=== PATIENT | female | born 1985 | race Caucasian/White ===

== ENCOUNTER 2022-02-27 19:10 | Observation (INO) | payer BC ==
[2022-02-27] MEDS: Lactated Ringers 1,000 ML IV SCH (19:45)
[2022-02-27] MEDS: Promethazine 25 MG in Sodium Chloride 0.9% 50 ML IV PRN (20:14)
[2022-02-27] MEDS: Sodium Chloride 0.9% 10 ML Syringe FLUSH SCH (20:15)
[2022-02-27] MEDS ORDERED: Metoclopramide 10 MG/2 ML SDV IVPUSH ONE (21:00)
[2022-02-27] MEDS ORDERED: diphenhydrAMINE 50 MG/ML SDV IVPUSH ONE (21:00)
[2022-02-27] MEDS: HYDROmorphone 1 MG/ML Syringe IVPUSH PRN ×2 (21:04→23:57)
[2022-02-27] MEDS: Ondansetron 4 MG/2 ML SDV IVPUSH PRN (23:52)
[2022-02-28] MEDS: Lactated Ringers 1,000 ML IV SCH ×2 (01:30→08:14)
[2022-02-28] MEDS: Promethazine 25 MG in Sodium Chloride 0.9% 50 ML IV PRN ×2 (04:41→10:45)
[2022-02-28] MEDS: HYDROmorphone 1 MG/ML Syringe IVPUSH PRN (05:31)
[2022-02-28] MEDS: Ondansetron 4 MG/2 ML SDV IVPUSH PRN (08:26)
[2022-02-28] MEDS: Sodium Chloride 0.9% 10 ML Syringe FLUSH SCH (08:39)
== END 2022-02-28 13:10 | disposition critical access hospital (66) ==
LOC: JD.OB 19:10 → MERGE 19:10
PROVIDERS: ADMIT Obstetrics & Gynecology; ATTEND Obstetrics & Gynecology
DX: O21.0 Mild hyperemesis gravidarum (principal); Z3A.08 8 weeks gestation of pregnancy; Z87.891 Personal history of nicotine dependence
CPT/HCPCS: 36415; 85025; 96361; 96365; 96375; 96376; G0378; J1170; J1200; J2405; J2550; J2765; J3490; J7120

== ENCOUNTER 2022-05-22 23:16 | Emergency (ER) | payer BC ==
[2022-05-22] MEDS ORDERED: Sodium Chloride 0.9% 1,000 ML IV ONE (23:41)
[2022-05-22] MEDS ORDERED: Promethazine 25 MG in Sodium Chloride 0.9% 50 ML IV ONE (23:41)
[2022-05-22] MEDS ORDERED: hydrOXYzine HCl 25 MG/ML SDV IM ONE (23:42)
[2022-05-23] MEDS ORDERED: Magnesium Sulfate/Water 4 GM in Premix Bag 1 BAG IV ONE (01:27)
[2022-05-23] MEDS ORDERED: Potassium Chloride 20 MEQ Tab.ER PO ONE ×3 (01:27→07:52)
[2022-05-23] MEDS ORDERED: Promethazine 25 MG in Sodium Chloride 0.9% 50 ML IV ONE (04:17)
[2022-05-23] MEDS ORDERED: Alum Hydrox/Mag Hydrox/Simeth 30 ML, Lidocaine 2% 15 ML PO ONE ×2 (07:15)
== END 2022-05-23 08:05 | disposition home or self-care (01) ==
LOC: JD.ED 23:16
DX: O21.0 Mild hyperemesis gravidarum (principal); E83.42 Hypomagnesemia; E87.6 Hypokalemia; Z79.899 Other long term (current) drug therapy; Z3A.19 19 weeks gestation of pregnancy
CPT/HCPCS: 36415; 80048; 80053; 81001; 83735; 85025; 96365; 96366; 96367; 96372; 99284; A9270; J2550; J3410; J3475; J7030; 99283

== ENCOUNTER 2022-10-14 21:38 | Inpatient (IN) | payer BC ==
[2022-10-14] MEDS ORDERED: Ondansetron 4 MG/2 ML SDV IVPUSH PRN (22:10)
[2022-10-14] MEDS ORDERED: Nalbuphine 10 MG/0.5 ML Syringe IVPUSH PRN (22:10)
[2022-10-14] MEDS ORDERED: Sodium Chloride 0.9% 10 ML Syringe FLUSH PRN (22:10)
[2022-10-14] MEDS ORDERED: Lidocaine 1% 50 ML MDV INJECT ONE (22:10)
[2022-10-14] MEDS ORDERED: Lactated Ringers 1,000 ML IV SCH (22:15)
[2022-10-14] MEDS ORDERED: Oxytocin/Lactated Ringers 10 UNIT/1,000 ML BAG IV SCH (22:15)
[2022-10-15] MEDS ORDERED: Witch Hazel Medicated Pads 40/Jar TOP PRN (00:43)
[2022-10-15] MEDS ORDERED: Benzocaine/Menthol 20%-0.5% Spray 78 GM Cannister TOP PRN (00:43)
[2022-10-15] MEDS: Ibuprofen 600 MG Tab PO PRN ×3 (01:00→16:13)
[2022-10-15] MEDS: Acetaminophen 325 MG Tab PO PRN ×3 (05:51→20:18)
[2022-10-15] MEDS: Docusate Sodium 100 MG Cap PO PRN ×2 (08:06→22:15)
[2022-10-15] MEDS: Ondansetron 4 MG Tab.DIS PO PRN ×4 (08:07→20:19)
[2022-10-15] MEDS ORDERED: Sodium Chloride 0.9% 10 ML Syringe FLUSH SCH (09:00)
[2022-10-15] MEDS: Promethazine 25 MG Tab PO PRN (18:50)
[2022-10-15] MEDS ORDERED: Lactated Ringers 1,000 ML IV ONE (22:00)
[2022-10-15] MEDS ORDERED: Sodium Chloride 0.9% 10 ML Syringe FLUSH PRN (22:01)
[2022-10-15] MEDS: Ondansetron 4 MG/2 ML SDV IVPUSH PRN (22:18)
[2022-10-16] MEDS: Ibuprofen 600 MG Tab PO PRN (00:23)
[2022-10-16] MEDS: Promethazine 25 MG Tab PO PRN (00:23)
[2022-10-16] MEDS: Ondansetron 4 MG/2 ML SDV IVPUSH PRN ×4 (02:20→16:41)
[2022-10-16] MEDS ORDERED: Lactated Ringers 1,000 ML IV ONE (08:24)
[2022-10-16] MEDS ORDERED: Famotidine 20 MG Tab PO SCH (09:00)
[2022-10-16] MEDS ORDERED: Famotidine 40 MG/5 ML Bottle PO SCH (09:00)
[2022-10-16] MEDS ORDERED: Lactated Ringers 1,000 ML IV SCH (09:00)
[2022-10-16] MEDS ORDERED: Famotidine 20 MG/2 ML SDV IVPUSH SCH (10:00)
[2022-10-16] MEDS: Promethazine 12.5 MG in Sodium Chloride 0.9% 50 ML IV PRN ×2 (10:14→16:49)
== END 2022-10-16 17:50 | disposition home or self-care (01) | DRG 560 ==
LOC: JD.OBCHECK 21:38 → JD.OB 22:10 → OBSVTOIN 23:42 → JD.OB 23:42
PROVIDERS: ADMIT Obstetrics & Gynecology; ATTEND Obstetrics & Gynecology
PROC: 10E0XZZ Delivery of Products of Conception, External Approach (ICD-10-PCS; principal; 2022-10-14)
PROC: 0HQ9XZZ Repair Perineum Skin, External Approach (ICD-10-PCS; 2022-10-14)
DX: O99.62 Diseases of the digestive system complicating childbirth (principal); O70.1 Second degree perineal laceration during delivery; Z37.0 Single live birth; K21.9 Gastro-esophageal reflux disease without esophagitis; O99.344 Other mental disorders complicating childbirth; F41.9 Anxiety disorder, unspecified; F32.A Depression, unspecified; R10.13 Epigastric pain; Z3A.40 40 weeks gestation of pregnancy
CPT/HCPCS: 36415; 59020; 59409; 80053; 85025; 86592; 86850; 86900; 86901; A9270-GY; J2001; J2405; J2550; J2590; J3490; J7120; J8597

== ENCOUNTER 2023-02-24 05:43 | Emergency (ER) | payer BC ==
[2023-02-24] MEDS ORDERED: HYDROmorphone 1 MG/ML Syringe IVPUSH STA (06:24)
[2023-02-24] MEDS ORDERED: Metoclopramide 10 MG/2 ML SDV IVPUSH STA (06:25)
[2023-02-24] MEDS ORDERED: Sodium Chloride 0.9% 1,000 ML IV ONE (06:25)
[2023-02-24 06:42] LABS: HEMATOCRIT 47.2 % (34.1-44.9); HEMOGLOBIN 16.6 gm/dl (11.2-15.7); MEAN CORPUSCULAR HEMOGLOBIN 31.8 pg (25.6-32.2); MEAN CORPUSCULAR HGB CONC 35.2 g/dl (32.2-35.5); MEAN CORPUSCULAR VOLUME 90.4 fl (79.4-94.8); MEAN PLATELET VOLUME 10.8 fl (9.4-12.3); PLATELET COUNT,PLT 280 K/mm3 (182-369); RED BLOOD CELL COUNT 5.22 M/mm3 (3.98-5.22); WHITE BLOOD CELL COUNT,WBC 15.55 K/mm3 (3.98-10.04)
[2023-02-24] MEDS ORDERED: Iopamidol 612 MG/ML 100 ML Bottle IVPUSH ONE (06:43)
[2023-02-24] MEDS ORDERED: Sodium Chloride 0.9% 10 ML Syringe FLUSH ONE (06:43)
[2023-02-24 06:49] LABS: A/G RATIO 1.3 (1-2); ALBUMIN 5.1 g/dl (3.4-5.0); ANION GAP 22.5 (5-15); BILIRUBIN TOTAL 0.9 mg/dL (0.2-1.0); BUN/CREATININE RATIO 19.1 (14-18); CALCIUM 10.4 mg/dL (8.5-10.1); CREATININE 1.1 mg/dL (0.55-1.02); EST CRCL DRUG DOSING (CG) 64.23 mL/min; POTASSIUM,K 3.5 mEq/L (3.5-5.1)
[2023-02-24 07:08] LABS: BAND PERCENT MAN 1 % (0-10); BASOPHILS PERCENT MAN 1 (0.1-1.2); EOSINOPHILS PERCENT MAN 0 % (0.7-5.8); LYMPHOCYTES % ATYPICAL MANUAL 0 %; LYMPHOCYTES PERCENT MAN 10 % (20-40); MONOCYTES PERCENT MAN 9 % (2-10)
[2023-02-24 07:09] LABS: PLATELET COUNT ESTIMATE ADEQUATE
[2023-02-24 09:07] LABS: APPEARANCE,URINE CLEAR (Clear); BILIRUBIN,URINE 1+ (Negative); COLOR,URINE YELLOW (Yellow); GLUCOSE,URINE NEGATIVE (Negative); KETONES,URINE 2+ (Negative); LEUKOCYTE ESTERASE,URINE NEGATIVE (Negative); NITRITE,URINE NEGATIVE (Negative); OCCULT BLOOD,URINE NEGATIVE (Negative); PROTEIN,URINE 2+ (Negative); UROBILINOGEN,URINE 0.2 (0.2-1.0)
[2023-02-24 09:15] LABS: BACTERIA,URINE FEW /hpf (FEW); EPITHELIAL CELLS,URINE 0-5 /hpf (0-5); MUCUS,URINE MANY /hpf (FEW); RBC,URINE 0-5 /hpf (0-5); WBC,URINE 0-5 /hpf (0-5)
== END 2023-02-24 09:35 | disposition home or self-care (01) ==
LOC: JD.ED 05:43
DX: R11.2 Nausea with vomiting, unspecified (principal); R10.9 Unspecified abdominal pain; F17.210 Nicotine dependence, cigarettes, uncomplicated; Z86.16 Personal history of COVID-19; Z79.899 Other long term (current) drug therapy
CPT/HCPCS: 36415; 74177; 80053; 81001; 83690; 84703; 85007; 85027; 96361; 96374; 96375; 99284; J1170; J2765; J3490; J7030; Q9967

== ENCOUNTER 2023-02-25 07:42 | Emergency (ER) | payer BC ==
[2023-02-25] MEDS ORDERED: Metoclopramide 10 MG/2 ML SDV IVPUSH ONE (08:06)
[2023-02-25] MEDS ORDERED: Sodium Chloride 0.9% 10 ML Syringe FLUSH PRN (08:06)
[2023-02-25] MEDS ORDERED: Sodium Chloride 0.9% 1,000 ML IV STA (08:06)
[2023-02-25] MEDS ORDERED: HYDROmorphone 1 MG/ML Syringe IVPUSH ONE (08:08)
[2023-02-25 08:22] LABS: BASOPHILS ABSOLUTE AUTO 0.02 K/mm3 (0.01-0.08); BASOPHILS PERCENT AUTO 0.2 % (0.1-1.2); EOSINOPHILS PERCENT AUTO 0 (0.7-5.8); HEMATOCRIT 43.2 % (34.1-44.9); HEMOGLOBIN 15.2 gm/dl (11.2-15.7); IMMATURE GRAN ABSOLUTE AUTO 0.02 K/mm3 (0.00-0.10); IMMATURE GRAN PERCENT AUTO 0.2 % (<=1.0); LYMPHOCYTES ABSOLUTE AUTO 1.43 K/mm3 (1.18-3.74); LYMPHOCYTES PERCENT AUTO 13.9 % (19.3-51.7); MEAN CORPUSCULAR HGB CONC 35.2 g/dl (32.2-35.5); MEAN CORPUSCULAR VOLUME 90.9 fl (79.4-94.8); MEAN PLATELET VOLUME 10.5 fl (9.4-12.3); MONOCYTES ABSOLUTE AUTO 0.57 K/mm3 (0.24-0.36); MONOCYTES PERCENT AUTO 5.5 % (4.7-12.5); NEUTROPHILS ABSOLUTE AUTO 8.27 K/mm3 (1.56-6.13); NEUTROPHILS PERCENT AUTO 80.2 % (34.0-71.1); PLATELET COUNT,PLT 262 K/mm3 (182-369); RED BLOOD CELL COUNT 4.75 M/mm3 (3.98-5.22); WHITE BLOOD CELL COUNT,WBC 10.31 K/mm3 (3.98-10.04)
[2023-02-25 08:43] LABS: A/G RATIO 1.3 (1-2); ALBUMIN 4.4 g/dl (3.4-5.0); ANION GAP 19.3 (5-15); BILIRUBIN TOTAL 0.9 mg/dL (0.2-1.0); CALCIUM 9.4 mg/dL (8.5-10.1); EST CRCL DRUG DOSING (CG) 70.66 mL/min; POTASSIUM,K 3.3 mEq/L (3.5-5.1); PROTEIN TOTAL,TP 7.8 g/dl (6.4-8.2)
[2023-02-25] MEDS ORDERED: Sodium Chloride 0.9% 1,000 ML IV ONE (09:04)
[2023-02-25] MEDS ORDERED: Prochlorperazine 10 MG/2 ML SDV IVPUSH ONE (11:08)
[2023-02-25] MEDS ORDERED: diphenhydrAMINE 50 MG/ML SDV IVPUSH ONE (11:08)
[2023-02-25] MEDS ORDERED: Lactated Ringers 1,000 ML IV SCH (11:15)
== END 2023-02-25 14:22 | disposition home or self-care (01) ==
LOC: JD.ED 07:42
DX: R11.2 Nausea with vomiting, unspecified (principal); R10.10 Upper abdominal pain, unspecified; Z86.16 Personal history of COVID-19; Z79.899 Other long term (current) drug therapy
CPT/HCPCS: 36415; 80053; 83690; 85025; 96361; 96374; 96375; 99284; J0780; J1170; J1200; J2765; J3490; J7030; J7120